=== PATIENT | male | born 1995 | race Two or more races ===

== ENCOUNTER 2016-12-14 10:47 | Emergency (ER) | payer OTHER ==
[~2016-12-14] VITALS: Ht 195.6 cm; Wt 85.3 kg
[2016-12-14 12:02] VITALS: BP 121/71
== END 2016-12-14 12:05 | disposition home or self-care (01) ==
LOC: ED 10:47
DX: Z76.0 Encounter for issue of repeat prescription (principal); E11.9 Type 2 diabetes mellitus without complications; Z79.4 Long term (current) use of insulin
CPT/HCPCS: 82962

== ENCOUNTER 2017-01-26 11:02 | Emergency (ER) | payer OTHER ==
[2017-01-26 11:04] VITALS: BP 113/78
== END 2017-01-26 13:05 | disposition home or self-care (01) ==
LOC: ED 11:02
DX: Z76.0 Encounter for issue of repeat prescription (principal); E10.9 Type 1 diabetes mellitus without complications

== ENCOUNTER 2018-03-11 12:53 | Emergency (ER) | payer OTHER ==
[~2018-03-11] VITALS: Ht 195.6 cm; Wt 95.2 kg
[2018-03-11 12:58] VITALS: Ht 195.6 cm; Wt 95.2 kg
[2018-03-11 13:57] LABS: BASOPHIL % 0.5 % (0-2); PLATELET COUNT 296 x10^3mcL (130-400); RED CELL DISTRIBUTION WIDTH 12.6 % (11.5-14.5)
[2018-03-11 14:09] LABS: CHLORIDE SERUM 100 mmol/L (98-107); GFR1 > 60 mL/min; GLUCOSE SERUM 302 mg/dL (74-106); POTASSIUM SERUM 4.4 mmol/L (3.5-5.1); SODIUM SERUM 136 mmol/L (136-145)
[2018-03-11 14:13] LABS: ALBUMIN 4.1 g/dL (3.4-5.0); ALKALINE PHOSPHATASE 83 U/L (46-116); ALT/SGPT 17 U/L (16-63); AMYLASE 42 U/L (25-115); AST/SGOT 15 U/L (15-37); LIPASE 68 IU/L (73-393); TOTAL PROTEIN, SERUM 7.7 g/dL (6.4-8.2)
[2018-03-11 17:13] VITALS: BP 141/90
== END 2018-03-11 17:13 | disposition home or self-care (01) ==
LOC: ED 12:53
PROVIDERS: Emergency Medicine
DX: E11.43 Type 2 diabetes mellitus with diabetic autonomic (poly)neuropathy (principal); K31.84 Gastroparesis; G47.00 Insomnia, unspecified
CPT/HCPCS: 83880; 87046; 87046-59; J1200; J2765; J3490